=== PATIENT | female | born 1945 | race Caucasian/White ===

== ENCOUNTER 2018-12-05 16:11 | Emergency (ER) | payer OTHER ==
[~2018-12-05] VITALS: Ht 157.5 cm; Wt 65.8 kg
[~2018-12-05 16:11] MED LIST: CAPOTEN50 MG; ERYTHROMYCIN E400 MG; GILTUSS HC SYR473 ML; LEVOTHYROXINE88 MCG
== END 2018-12-05 23:20 | disposition home or self-care (01) ==
LOC: ER 16:11 → CPU-OBS 16:19 → ER 12-06 00:09
DX: R53.1 Weakness (principal); R00.0 Tachycardia, unspecified; R42 Dizziness and giddiness

== ENCOUNTER 2020-02-10 20:24 | Emergency (ER) | payer OTHER ==
[~2020-02-10] VITALS: Ht 152.4 cm; Wt 63.5 kg
[2020-02-10] MEDS ORDERED: LISINOPRIL10 MG (20:39)
== END 2020-02-10 22:29 | disposition home or self-care (01) ==
LOC: ER 20:24
DX: R04.0 Epistaxis (principal)